=== PATIENT | female | born 1980 | race Caucasian/White ===

== ENCOUNTER → 2022-02-11 | Outpatient (CLI) | payer MEDICAID ==
--- NOTE | 2022-02-11 10:47 | Diagnostic Imaging Report ---
INDICATION: Left shoulder pain AP, oblique, and transscapular views of the left shoulder are obtained. No fracture or dislocation seen. There is no acute bony abnormality. Glenohumeral joint appears unremarkable. There is moderate degenerative change of the AC joint with some inferior spurring. 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 No acute abnormality. Dictated by: Dictated on workstation # [id number]
== END ==
LOC: RAD FS 09:36
PROVIDERS: ATTEND Nurse Practitioner
DX: M19.012 Primary osteoarthritis, left shoulder (principal); M77.8 Other enthesopathies, not elsewhere classified
CPT/HCPCS: 73030